=== PATIENT | male | born 1995 | race Caucasian/White ===

== ENCOUNTER → 2021-08-20 13:06 | Outpatient (ROUT) | payer OTHER, SELFPAY ==
[2021-08-20 14:06] LABS: COVID19 -Nasal RAPID Negative (Negative)
== END ==
PROVIDERS: Visit Provider Family Medicine
DX: Z20.822 Contact with and (suspected) exposure to COVID-19 (principal)
CPT/HCPCS: 87635

== ENCOUNTER → 2021-09-18 15:20 | Outpatient (ROUT) | payer OTHER, SELFPAY ==
[2021-09-18 15:43] LABS: COVID19 -Nasal RAPID Negative (Negative)
== END ==
PROVIDERS: Visit Provider Family Medicine
DX: Z20.822 Contact with and (suspected) exposure to COVID-19 (principal)
CPT/HCPCS: 87635

== ENCOUNTER → 2021-11-25 13:50 | Outpatient (ROUT) | payer OTHER, SELFPAY ==
[2021-11-25 17:18] LABS: COVID19 -Nasal RAPID POSITIVE (Negative)
== END ==
PROVIDERS: Visit Provider Family Medicine
DX: U07.1 COVID-19 (principal); Z20.822 Contact with and (suspected) exposure to COVID-19
CPT/HCPCS: 87635

== ENCOUNTER → 2022-12-31 13:28 | Outpatient (CLI) | payer OTHER, SELFPAY ==
--- NOTE | 2022-12-31 | DI.RAD.S_ITS ---
PROCEDURE: XR LUMBAR SPINE 2-3V INDICATIONS: LUMBAR STRAIN TECHNIQUE: 3 views of the lumbar spine were acquired. COMPARISON: None. FINDINGS: Bones: 5 [id number] vertebrae are present. There is grade 1 retrolisthesis of L4 on L5 and grade 1 anterolisthesis of L5 on S1. Suspect pars defect at L5. No vertebral body compression fractures. No suspicious bony lesions. Mild degenerative joint disease and facet arthropathy at L4-L5 and L5-S1. Soft tissues: Overlying bowel gas pattern is normal. No suspicious soft tissue calcifications. IMPRESSION: 1. Spondylolisthesis and spondylolysis in lumbar spine. 2. Suspect pars defect at L5. Dictated by: Fifi Humphreys M.D. on 01/01/2023 at 12:18 Approved by: Fifi Humphreys M.D. on 01/01/2023 at 12:20
== END ==
PROVIDERS: Referring Provider Family Medicine; Visit Provider Family Medicine
DX: S39.012A Strain of muscle, fascia and tendon of lower back, initial encounter (principal); M43.16 Spondylolisthesis, lumbar region; X58.XXXA Exposure to other specified factors, initial encounter
CPT/HCPCS: 72100

== ENCOUNTER → 2023-01-10 13:32 | Outpatient (CLI) | payer OTHER, SELFPAY ==
--- NOTE | 2023-01-10 13:34 | DI.MRI.S_ITS ---
PROCEDURE: MR LUMBAR SPINE WO CON INDICATIONS: Spondylolysis, lumbar region TECHNIQUE: Noncontrast sagittal T1 spin echo and T2 fast echo, sagittal STIR, and T2 fast spin echo through the lumbar spine. In cases with scoliosis, additional coronal T2 fast spin echo may be performed. COMPARISON: [facility], CR, XR LUMBAR SPINE 2-3V, 12/31/2022, 14:44. FINDINGS: Image quality: Excellent. Alignment and Curvature: Bilateral L5 pars defects. Anterolisthesis of L5 on S1 measures approximately 6 mm. Approximately 3 mm retrolisthesis L4 on L5. Bone Marrow: Marrow is of normal overall signal. No acute vertebral body compression fractures. Spinal Cord: Conus medullaris terminates at the L1 level. Visualized cord demonstrates normal signal and size. Paraspinous Soft Tissues: No paravertebral masses. T12-L1: Normal appearance. L1-L2: Normal appearance. L2-L3: Normal appearance. L3-L4: Mild facet hypertrophy. No canal stenosis or foraminal stenosis. L4-L5: Posterior annulus tear plus mild central posterior disc protrusion without nerve root impingement. No canal stenosis. Mild bilateral facet hypertrophy. No foraminal narrowing. L5-S1: Bilateral L5 pars defects. 6 mm anterolisthesis of L5 on S1. No central canal stenosis. [id number] right foraminal narrowing. There is a left foraminal annulus tear plus left foraminal disc protrusion which, in conjunction with the anterolisthesis results in severe left foraminal narrowing with significant left foraminal L5 nerve root impingement. IMPRESSION: 1. At L5-S1, there are bilateral L5 pars defects. There is grade 1 anterolisthesis of L5 on S1. There is no canal stenosis. There is left foraminal annulus tear plus foraminal disc protrusion. There is severe left foraminal narrowing with significant left foraminal L5 nerve root impingement. 2. Posterior annulus tear plus mild central posterior disc protrusion at L4-L5, without canal stenosis. Dictated by: Andrea Gutierrez M.D. on 01/11/2023 at 7:20 Approved by: Andrea Gutierrez M.D. on 01/11/2023 at 7:24
== END ==
PROVIDERS: Referring Provider Family Medicine; Visit Provider Family Medicine
DX: M43.17 Spondylolisthesis, lumbosacral region (principal); M51.27 Other intervertebral disc displacement, lumbosacral region; M51.26 Other intervertebral disc displacement, lumbar region; M48.07 Spinal stenosis, lumbosacral region
CPT/HCPCS: 72148

== ENCOUNTER → 2023-08-17 14:45 | Outpatient (CLI) | payer OTHER, SELFPAY ==
--- NOTE | 2023-08-17 | DI.RAD.S_ITS ---
PROCEDURE: XR HAND RT MIN 3V INDICATIONS: right hand contusion TECHNIQUE: 3 views of the hand(s) acquired. COMPARISON: None. FINDINGS: Bones: No fractures or dislocations. Carpal bones are normally aligned. No suspicious bony lesions. Soft tissues: No suspicious soft tissue calcifications. IMPRESSION: Normal right hand Dictated by: Jagjit Lew M.D. on 08/17/2023 at 15:53 Approved by: Jagjit Lew M.D. on 08/17/2023 at 15:54
== END ==
PROVIDERS: Referring Provider Family Medicine; Visit Provider Family Medicine
DX: S60.221A Contusion of right hand, initial encounter (principal); X58.XXXA Exposure to other specified factors, initial encounter
CPT/HCPCS: 73130

== ENCOUNTER → 2024-08-23 10:13 | Outpatient (CLI) | payer OTHER, SELFPAY ==
--- NOTE | 2024-08-23 10:18 | DI.RAD.S_ITS ---
PROCEDURE: XR FINGER RT MIN 2V INDICATIONS: R THUMB DISLOCATION TECHNIQUE: AP hand, 2 views of the the right 1st finger finger(s) acquired. COMPARISON: None. FINDINGS: Bones: There are no osseous abnormalities. Ulnar minus variant noted Joints: The joint spaces are normal in width and alignment without arthritic change. Soft tissues: No soft tissue abnormality. IMPRESSION: Ulnar minus variant otherwise negative Dictated by: Miquel Jenkins M.D. on 08/24/2024 at 9:22 Approved by: Miquel Jenkins M.D. on 08/24/2024 at 9:23
== END ==
PROVIDERS: Referring Provider Family Medicine; Visit Provider Family Medicine
DX: S63.114A Dislocation of metacarpophalangeal joint of right thumb, initial encounter (principal); M21.831 Other specified acquired deformities of right forearm; X58.XXXA Exposure to other specified factors, initial encounter
CPT/HCPCS: 73140

== ENCOUNTER → 2024-11-28 14:46 | Outpatient (CLI) | payer OTHER, SELFPAY ==
--- NOTE | 2024-11-28 14:49 | DI.RAD.S_ITS ---
PROCEDURE: XR KNEE LT 3V INDICATIONS: Unspecified fracture of left patella, initial encounter for TECHNIQUE: 3 views of the knee were acquired. COMPARISON: None. FINDINGS: Bones: A small (1 cm) spur projects from the medial facet of the posterior patella. Joints: The tibialfemoral and patellofemoral joints are normal in width and alignment without arthritic change. . Small effusion noted. Soft tissues: Normal IMPRESSION: Small effusion. 1 cm exostosis projecting from the medial facet of the posterior patella which may predispose to premature secondary degeneration Dictated by: Miquel Jenkins M.D. on 11/29/2024 at 9:27 Approved by: Miquel Jenkins M.D. on 11/29/2024 at 9:28
== END ==
LOC: RAD 14:48
PROVIDERS: Referring Provider Family Medicine; Visit Provider Family Medicine
DX: S89.92XA Unspecified injury of left lower leg, initial encounter (principal); M25.462 Effusion, left knee; M89.9 Disorder of bone, unspecified; X58.XXXA Exposure to other specified factors, initial encounter
CPT/HCPCS: 73562